=== PATIENT | male | born 1950 | race Caucasian/White ===

== ENCOUNTER 2024-11-10 08:31 | Emergency (ER) | payer OTHER ==
[~2024-11-10] VITALS: Ht 188 cm; Wt 90.7 kg
[2024-11-10] MEDS ORDERED: Acetaminophen 500 MG Tab PO ONE (09:20)
[2024-11-10] MEDS ORDERED: Lidocaine 4% 1 Patch TOP ONE (09:20)
[2024-11-10] MEDS ORDERED: Mag Hydrox/AL Hydrox/Simeth 30 ML UDC PO ONE (10:10)
[2024-11-10] MEDS ORDERED: Robaxin750 MG PO (10:12)
[2024-11-10] MEDS ORDERED: Roxicodone5 MG PO (10:12)
[2024-11-10] MEDS ORDERED: ACET500 PO (10:12)
== END 2024-11-10 10:35 | disposition home or self-care (01) ==
LOC: ER 08:31
DX: S22.31XA Fracture of one rib, right side, initial encounter for closed fracture (principal); W01.0XXA Fall on same level from slipping, tripping and stumbling without subsequent striking against object, initial encounter
CPT/HCPCS: 71101; 99283-25; A9270